=== PATIENT | male | born 1995 | race Caucasian/White ===

== ENCOUNTER 2017-10-13 13:08 | Emergency (ER) | payer OTHER ==
[2017-10-13 13:17] VITALS: TEMP 97.3; O2SAT 97
[2017-10-13] MEDS ORDERED: IBUPROFEN 600 MG TAB PO ONE ×2 (14:33→14:36)
[2017-10-13] MEDS ORDERED: HYDROCODONE/APAP 5/325 TAB PO ONE (14:36)
--- NOTE | 2017-10-13 14:39 | EDPHY ---
H & P HPI/ROS: Chief complaint: Right ankle injury History of present illness: This is a 22-year-old male who presents to the emergency department for a right ankle injury. Patient was wrestling with friends last night when he twisted his ankle. Since then he has had pain and swelling. Difficulty moving the ankle. He is unable to ambulate on it. He denies associated signs or symptoms including no open wounds. No abnormal coolness or paresthesias in the leg or foot. No report of trauma to other parts of the body. Smoking Status: Never smoked Physical Exam: General appearance: Alert, nontoxic Musculoskeletal: Diffuse edema to the right ankle. This region is tender to palpation. The knee, proximal lower leg and foot are nontender. He can move the knee and digits well. Muscle compartments are soft. Vascular exam: Normal pulses and capillary refill in the foot. Neurologic exam: The patient has normal sensation and motor function distal to the injury. Skin: No open wounds noted. Constitutional: Initial Vital Signs Temperature (C) 36.3 C 10/13/17 13:14 Heart Rate 94 10/13/17 13:14 Respiratory Rate 17 10/13/17 13:14 Blood Pressure 110/78 10/13/17 13:14 O2 Sat (%) 97 10/13/17 13:14 O2 Delivery Mode Room Air Allergies/Adverse Reactions: No Known Allergies Allergy (Unverified 10/13/17 13:14) Home Medications: Medication Instructions Recorded Hydrocodone/APAP 5/325 [Effie 1 tab PO Q6 #10 tab 10/13/17 5/325 (*)] MDM/Departure - [facility] Imaging Results: Imaging Impressions Ankle X-Ray 10/13/17 13:18 Impression: Mildly displaced and partially comminuted angulated distal fibular diaphyseal fracture with mortise disruption. Imaging: I viewed and interpreted images myself Procedures: Procedure: Splint placement. A posterior and sugar-tong short-leg splint was applied. After application of the splint I returned and re-examined the patient. The splint was adequately immobilizing the joint and distal to the splint the patient's circulation and sensation was intact. Medications Given: Discontinued Medications Hydrocodone Bitart/Acetaminophen (Effie 5/325) 1 tab PO EDNOW ONE Stop: 10/13/17 14:37 Last Admin: 02/04/18 14:48 Dose: 1 tab Ibuprofen (Motrin) 600 mg PO EDNOW ONE Stop: 10/13/17 14:34 Last Admin: 10/13/17 14:49 Dose: 600 mg Ibuprofen (Motrin) 600 mg PO EDNOW ONE Stop: 10/13/17 14:37 Last Admin: 10/13/17 14:48 Dose: Not Given ED Course/Re-evaluation: Patient seen under the supervision of my secondary supervising physician Dr. Pérez Trevino. Patient presents to the emergency department for a right ankle injury. X-ray confirms a fracture. The foot is neurovascularly intact. By history and physical exam no evidence of trauma to other parts of the body. Patient is splinted. He will be discharged home. I have discussed with him he needs to follow up with Orthopedics. He states he initially needs to follow up with [facility] because of his health insurance status. I asked him to follow up with [facility] this week and discuss referral quickly to an orthopedic doctor through them as he will likely need the surgically fixed. Home care is discussed. Return precautions are given. Differential Diagnosis: Included but not limited to contusion, sprain or strain, bony fracture - Depart Disposition: Home, Routine, Self-Care Clinical Impression: Ankle fracture, right Qualifiers: Encounter type: initial encounter Fracture type: closed Qualified Code(s): S82.891A - Other fracture of right lower leg, initial encounter for closed fracture Condition: Good Instructions: Ankle Fracture (ED), Splint Care (ED) Additional Instructions: Follow-up with an orthopedic doctor this week for recheck In regards to pain control see the following: Use ibuprofen [600] mg [3] times a day for the next 2-3 days for pain In addition You have been prescribed [Effie] for pain. [Effie] contains Tylenol, do not take extra Tylenol/acetaminophen/Apap/paracetamol with it. It is sedating. If symptoms worsen or new symptoms develop return to the emergency room for recheck Prescriptions: Hydrocodone/APAP 5/325 [Effie 5/325 (*)] 1 tab PO Q6 #10 tab Referrals: [facility] SARGENT ,. [Primary Care Provider] - As per Instructions
[2017-10-13 16:05] VITALS: BP 106/80; PULSE 64; RESP 14
== END 2017-10-13 15:45 | disposition home or self-care (01) ==
DX: S82.451A Displaced comminuted fracture of shaft of right fibula, initial encounter for closed fracture (principal); X58.XXXA Exposure to other specified factors, initial encounter; Y99.8 Other external cause status; Y93.72 Activity, wrestling